=== PATIENT | male | born 1950 | race Caucasian/White ===

== ENCOUNTER → 2019-09-09 10:18 | Outpatient (BNVA) | payer MEDICARE, OTHER, SELFPAY | PROVIDERS: Family Provider Family Medicine; PCP Family Medicine; Visit Provider Specialist | DX: M79.642 Pain in left hand (principal) | CPT/HCPCS: 73130 ==

== ENCOUNTER → 2019-09-14 10:52 | Outpatient (BNVA) | payer MEDICARE, OTHER, SELFPAY | PROVIDERS: Family Provider Family Medicine; PCP Family Medicine; Visit Provider Family Medicine | DX: M25.661 Stiffness of right knee, not elsewhere classified (principal); M25.562 Pain in left knee; G89.29 Other chronic pain | CPT/HCPCS: 73562 ==

== ENCOUNTER 2019-09-15 06:29 | Day surgery (SDC) | payer MEDICARE, OTHER, SELFPAY ==
[2019-09-14 10:02] VITALS: BMI 17.9
--- NOTE | 2019-09-15 06:55 | P.HPUD_ITS ---
Surgery/Procedure H&P Update DATE OF PROCEDURE: September 15, 2019 DATE H&P PERFORMED: 09/09/19 H&P UPDATE INFORMATION: I have reviewed H&P completed within last 30 days, No changes to prior documentation and [place] is in [facility] [place] date indicated PREOP DIAGNOSIS: Triggering Left Thumb PLANNED PROCEDURE: Operation Date: 09/15/19 08:05 Proposed Procedures p Trigger Finger Release of left thumb 26307 M65.312(Left) - Michelle Queen MD Related Problem List Diagnoses (1) Trigger thumb of left hand:
[2019-09-15 07:06] VITALS: BP 147/98; PULSE 55; RESP 18; TEMP 36.1; O2SAT 94
[2019-09-15] MEDS: CELEcoxib 200 mg Capsule 400 MG PO (07:10)
[2019-09-15] MEDS: sodium chloride 0.9% 1,000 ML 30 ML IV (07:35)
--- NOTE | 2019-09-15 07:36 | ANES.PREANE2 ---
Pre-Anesthetic Assessment Pre-Anesthetic Assessment: Height/Weight: Height 1.73 m Weight 53.524 kg Temp Pulse Resp BP Pulse Ox 97.0 F L 55 L 18 147/98 94 09/15/19 07:06 09/15/19 07:06 09/15/19 07:06 09/15/19 07:06 09/15/19 07:06 Preop Diagnosis: Left trigger thumb Proposed Procedure: Operation Date: 09/15/19 08:05 Proposed Procedures p Trigger Finger Release of left thumb 45733 M65.312(Left) - Michelle Queen MD Familial anesthetic complications: None Was Beta Lenard taken within 24 hours: N/A Last intake: Intake Took verapamil and enalapril Last Liquid Date 09/14/19 Last Liquid Time 22:00 Last Solid Date 09/14/19 Last Solid Time 20:00 Social: Social History: No alcohol and No tobacco Comment: former smoker Exam: Pre-Anes Outpt Exam: alert, oriented x 3, clear to auscultation bilaterally and regular rate & rhythm Airway: Cervical ROM: WNL MP: 1 Dentition: Full Pulmonary: Pulmonary: None reported CV/HEM: CV/HEM: HTN : : None reported Hepatic: Hepatic: None reported GI: GI: GERD Metabolic: Metabolic: None reported Musc/skel: Musc/skel: OA/DJD Neuropsych: Neuropsych: CVA (seen on imaging (MRI) - 2014 (still has occassional dizziness)) Anesthetic Plan: ASA status: 2 Anesthesia: MAC Risk of > 500 ml blood loss (7ml/kg in children): No Meds/Allergies Current Medications: Current Medications Generic Name Dose Route Start Last Admin Trade Name Freq PRN Reason Stop Dose Admin Sodium Chloride 1,000 mls @ 30 ml s/hr 09/15/19 07:15 09/15/19 07:35 Sodium Chloride 0.9% IV 09/16/19 07:14 30 mls/hr .Q24H NAVEED Administration PFSH Anesthesia PFSH: Medical History (Updated 09/14/19 @ 10:49 by Demi Saenz MD) Essential hypertension GERD (gastroesophageal reflux disease) H/O: stroke History of CVA (cerebrovascular accident) Hyperlipidemia Osteoarthritis Surgical History (Updated 09/14/19 @ 10:44 by Demi Saenz MD) H/O adenoidectomy H/O arthroscopic knee surgery H/O hand surgery H/O hernia repair H/O sinus surgery S/P tonsillectomy Social History Smoking and tobacco status: former smoker Quit status (tobacco): has quit using tobacco Second hand smoke exposure: No Alcohol intake: current Alcohol intake frequency: holidays/special occasions only Desire information about alcohol rehabilitation?: No Desire information about substance/drug rehabilitation?: No Caregiver/support person: Yes Lives independently: No Household members: spouse Housing: House Marital status: Current occupational status: retired History of recent travel: No Data Anesthesia Cardiac Studies: No Data to Display
[2019-09-15 08:45] VITALS: BP 133/71; PULSE 55; RESP 18; TEMP 36.9; O2SAT 96
--- NOTE | 2019-09-15 08:46 | PM.OP ---
Operative Report Date of procedure: September 15, 2019 Pre-op Diagnosis: Left trigger thumb Post-op diagnosis: same Procedure Done: Release left trigger thumb Specimens removed/disposition: None Pathology: none sent Surgeon: Michelle Queen Geometry Professor: None Anesthesia: Other ([place] Block with MAC) Estimated blood loss (mL): 3 Tourniquet time (min): 31 IV fluids (mL): 250 Urine output (mL): 0 Complications: None Findings: Significant irritation to the flexor tendons of the thumb. Condition: stable Disposition: same day Brief History: This 69-year-old gentleman presented with complaints of triggering of the left thumb. After discussion of treatment options, the patient wished to proceed with surgical release. Risks and complications were presented to him and discussed at length. Consents were signed. Procedure: Patient was brought to the operating theater. He was placed on the operating room table. A Madeline block was administered without difficulty. Patient tolerated it well. 2 g of Ancef was administered prophylactically. A tourniquet was placed high on the arm and was elevated for the [place] block. This followed exsanguination of the arm. The Madeline block was administered per anesthesia. Tourniquet time was 31 minutes. Surgical pause was performed prior to commencement of the surgical procedure. At the time of the surgical pause we identified the site and side of surgery. We also identified the patient's identity and appropriate administration of IV antibiotics. Following the surgical pause, an incision was made along the metacarpophalangeal crease of the thumb. Dissection continued through the skin to the subcutaneous tissues using a scalpel. Blunt dissection was then utilized to spread soft tissues and allow access to the A1 alexandr. The A1 alexandr was identified. It was then incised longitudinally and sharply using a knife. This was accomplished without difficulty and atraumatically. Once the A1 alexandr was released, tendons were brought up out of the wound and evaluated. There were no gross masses on the tendons. Tendons were returned to normal position. We then irrigated the wound and subsequently closed it with 3-0 nylon with an interrupted mattress type suture. Following closure of the wound, the wound was injected with bupivacaine plain into the subcutaneous tissues as a local anesthetic. Sterile dressing was then placed consisting of of Telfa, Tegaderm, fluffed fluffs, sterile soft roll, and an Ambrocio wrap. The patient was returned to recovery in satisfactory condition. He will be discharged home to follow-up with me in the office. There were no complications and no specimens.
[2019-09-15 09:07] VITALS: BP 118/84; PULSE 52; RESP 18; O2SAT 96
== END 2019-09-15 09:25 | disposition home or self-care (01) ==
PROVIDERS: Family Provider Family Medicine; Visit Provider Specialist
PROC: (CPT 26055; principal; 2019-09-15 08:05)
DX: M65.312 Trigger thumb, left thumb (principal); I10 Essential (primary) hypertension; K21.9 Gastro-esophageal reflux disease without esophagitis; M19.90 Unspecified osteoarthritis, unspecified site; Z86.73 Personal history of transient ischemic attack (TIA), and cerebral infarction without residual deficits; E78.5 Hyperlipidemia, unspecified; Z87.891 Personal history of nicotine dependence
CPT/HCPCS: 26055; 12345; J0690; J2001; J2704; J3010; J3490; J7030

== ENCOUNTER → 2019-09-30 09:51 | Outpatient (BNVA) | payer MEDICARE, OTHER, SELFPAY | PROVIDERS: Family Provider Family Medicine; Visit Provider Specialist | DX: M25.561 Pain in right knee (principal); M25.562 Pain in left knee | CPT/HCPCS: 73560; 73565 ==

== ENCOUNTER → 2020-02-15 16:48 | Outpatient (BNVA) | payer MEDICARE, OTHER, SELFPAY | PROVIDERS: Family Provider Family Medicine; PCP Family Medicine; Visit Provider Family Medicine | DX: I10 Essential (primary) hypertension (principal); E78.5 Hyperlipidemia, unspecified; M77.9 Enthesopathy, unspecified; D22.9 Melanocytic nevi, unspecified; E78.2 Mixed hyperlipidemia; S99.919A Unspecified injury of unspecified ankle, initial encounter | CPT/HCPCS: 80048; 80061 ==

== ENCOUNTER → 2020-02-17 13:12 | Outpatient (BNVA) | payer MEDICARE, OTHER, SELFPAY | PROVIDERS: Family Provider Family Medicine; PCP Family Medicine; Visit Provider Family Medicine | DX: D22.9 Melanocytic nevi, unspecified (principal) | CPT/HCPCS: 88304 ==

== ENCOUNTER → 2020-04-12 09:58 | Outpatient (BNVA) | payer MEDICARE, OTHER, SELFPAY | PROVIDERS: Family Provider Family Medicine; PCP Family Medicine; Visit Provider Nurse Practitioner Family | DX: S82.61XA Displaced fracture of lateral malleolus of right fibula, initial encounter for closed fracture (principal); X58.XXXA Exposure to other specified factors, initial encounter | CPT/HCPCS: 73610 ==

== ENCOUNTER → 2020-04-27 11:21 | Outpatient (BNVA) | payer MEDICARE, OTHER, SELFPAY | PROVIDERS: Family Provider Family Medicine; PCP Family Medicine; Visit Provider Emergency Medicine | DX: S82.62XA Displaced fracture of lateral malleolus of left fibula, initial encounter for closed fracture (principal); M25.572 Pain in left ankle and joints of left foot; X58.XXXA Exposure to other specified factors, initial encounter | CPT/HCPCS: 73610 ==

== ENCOUNTER → 2020-08-11 11:58 | Outpatient (BNVA) | payer MEDICARE, OTHER, SELFPAY | PROVIDERS: Family Provider Family Medicine; PCP Family Medicine; Visit Provider Specialist | DX: M79.641 Pain in right hand (principal); M19.041 Primary osteoarthritis, right hand | CPT/HCPCS: 73130 ==

== ENCOUNTER → 2020-08-15 09:16 | Outpatient (BNVA) | payer MEDICARE, OTHER, SELFPAY | PROVIDERS: Family Provider Family Medicine; PCP Family Medicine; Visit Provider Specialist | DX: M79.643 Pain in unspecified hand (principal); Z20.828 Contact with and (suspected) exposure to other viral communicable diseases | CPT/HCPCS: 87635 ==

== ENCOUNTER 2020-08-19 07:01 | Day surgery (SDC) | payer MEDICARE, OTHER, SELFPAY ==
[2020-08-18 13:28] VITALS: BMI 33.4
--- NOTE | 2020-08-19 06:59 | P.HPUD_ITS ---
Surgery/Procedure H&P Update DATE OF PROCEDURE: August 19, 2020 DATE H&P PERFORMED: 08/11/20 H&P UPDATE INFORMATION: I have reviewed H&P completed within last 30 days, I have examined patient prior to procedure, No changes to prior documentation and H&P is in [facility] [place] EMR on date indicated PREOP DIAGNOSIS: Right trigger thumb PLANNED PROCEDURE: Operation Date: 08/19/20 08:15 Proposed Procedures p right trigger thumb release 49186 M65.30(Right) - Michelle Queen MD Related Problem List Diagnoses (1) Trigger thumb of right hand:
[2020-08-19 07:21] VITALS: BP 173/98; PULSE 62; RESP 18; TEMP 36.6; O2SAT 97
[2020-08-19] MEDS: sodium chloride 0.9% 1,000 ML 30 ML IV (07:40)
[2020-08-19] MEDS: CELEcoxib 200 mg Capsule 400 MG PO (07:41)
--- NOTE | 2020-08-19 08:20 | ANES.PREANE2 ---
Pre-Anesthetic Assessment Pre-Anesthetic Assessment: Height/Weight: Height 1.73 m Weight 99.79 kg Temp Pulse Resp BP Pulse Ox 97.8 F 62 18 173/98 97 08/19/20 07:21 08/19/20 07:21 08/19/20 07:21 08/19/20 07:21 08/19/20 07:21 Preop Diagnosis: Right trigger thumb Proposed Procedure: Operation Date: 08/19/20 08:15 Proposed Procedures p right trigger thumb release 02642 M65.30(Right) - Michelle Queen MD Was Beta Lenard taken within 24 hours: N/A Last intake: Intake Last Liquid Date 08/19/20 Last Liquid Time 07:00 Last Solid Date 08/18/20 Last Solid Time 18:00 Social: Social History: No alcohol and No tobacco Exam: Pre-Anes Outpt Exam: alert, oriented x 3, clear to auscultation bilaterally and regular rate & rhythm Airway: Submandibular: WNL Cervical ROM: WNL MP: 3 Dentition: Full CV/HEM: CV/HEM: HTN Metabolic: Metabolic: Morbid obesity Neuropsych: Neuropsych: CVA Anesthetic Plan: ASA status: 3 Anesthesia: MAC and Regional (specify below) (Madeline torres) Risk of > 500 ml blood loss (7ml/kg in children): No Meds/Allergies Current Medications: Current Medications Generic Name Dose Route Start Last Admin Trade Name Freq PRN Reason Stop Dose Admin Sodium Chloride 1,000 mls @ 30 ml s/hr 08/19/20 07:00 08/19/20 07:40 Sodium Chloride 0.9% IV 08/20/20 06:59 30 mls/hr .Q24H NAVEED Administration PFSH Anesthesia PFSH: Medical History Essential hypertension GERD (gastroesophageal reflux disease) H/O: stroke History of CVA (cerebrovascular accident) Hyperlipidemia Osteoarthritis Surgical History H/O adenoidectomy H/O arthroscopic knee surgery H/O hand surgery H/O hernia repair H/O sinus surgery S/P tonsillectomy Family History Denies family history of Anesthesia complication Social History Smoking and tobacco status: former smoker Quit status (tobacco): has quit using tobacco Second hand smoke exposure: No Alcohol intake: current Alcohol intake frequency: holidays/special occasions only Desire information about alcohol rehabilitation?: No Desire information about substance/drug rehabilitation?: No Caregiver/support person: Yes Lives independently: No Household members: spouse Housing: House Marital status: Current occupational status: retired History of recent travel: No Data Anesthesia Cardiac Studies: No Data to Display
[2020-08-19 09:10] VITALS: BP 157/88; PULSE 56; RESP 18; TEMP 36.1; O2SAT 95
--- NOTE | 2020-08-19 09:17 | P.OP_ITS ---
Operative Report Date of procedure: August 19, 2020 Pre-op Diagnosis: Right trigger thumb Post-op diagnosis: same Procedure Done: Right trigger thumb release Pathology: none sent Surgeon: Michelle Queen Instrument And Control Technician: None Anesthesia: MAC (With [place] block) Estimated blood loss (mL): 5 Tourniquet time (min): 28 Tourniquet time: At 250 mmHg IV fluids (mL): 600 Urine output (mL): 0 Urine output: No Morrell Complications: None Condition: stable Disposition: same day (Then home with family) Brief History: This 70-year-old gentleman presented to the office complaining of triggering of his right thumb. After discussion, he wished to have the trigger thumb release. This was scheduled for him. Questions were answered. In September of last year, he had a left trigger thumb release and has done well following this. Procedure: Patient was brought to the operating theater. He was placed on the operating room table. A [place] block was administered without difficulty. Patient tolerated it well. 2 g of Ancef was administered prophylactically. A tourniquet was placed high on the arm and was elevated for the [place] block. This followed exsa nguination of the arm. The Madeline block was administered per anesthesia. Tourniquet time was 28 minutes. Surgical pause was performed prior to commencement of the surgical procedure. At the time of the surgical pause we identified the site and side of surgery. We also identified the patient's identity and appropriate administration of IV antibiotics. Following the surgical pause, an incision was made along the metacarpophalangeal crease of the thumb. Dissection continued through the skin to the subcutaneous tissues using a scalpel. Blunt dissection was then utilized to spread soft tissues and allow access to the A1 alexandr. The A1 alexandr was identified. It was then incised longitudinally and sharply using a knife. This was accomplished without difficulty and atraumatically. Once the A1 alexandr was released, tendons were brought up out of the wound and evaluated. There were no gross masses on the tendons. Tendons were returned to normal position. We then irrigated the wound and subsequently closed it with 3-0 nylon with an interrupted mattress type suture. Following closure of the wound, the wound was injected with bupivacaine plain into the subcutaneous tissues as a local anesthetic. Sterile dressing was then placed consisting of of Telfa, Tegaderm, fluffed fluffs, sterile soft roll, and an Ambrocio wrap. The patient was returned to recovery in satisfactory condition. He will be discharged home to follow-up with me in the office. There were no complications and no specimens. Associated Problem List Diagnoses (1) Trigger thumb of right hand:
[2020-08-19 09:29] VITALS: BP 146/87; PULSE 54; RESP 18; O2SAT 93
--- NOTE | 2020-08-19 10:05 | ANE.PACU2 ---
Inpatient post-anesthesia follow up: Airway intact: Yes Vital signs: Temperature 97.0 F Pulse Rate 54 Respiratory Rate 18 Blood Pressure 146/87 Pulse Oximetry 93 Oxygen Delivery Me thod Room Air Oxygen Flow Rate Fraction of Inspir ed Oxygen Hydration adequate: Yes Nausea and vomiting: No Pain level: 1 Mental status: Baseline
== END 2020-08-19 09:45 | disposition home or self-care (01) ==
PROVIDERS: PCP Family Medicine; Visit Provider Specialist
PROC: (CPT 26055; principal; 2020-08-19 08:05)
DX: M65.311 Trigger thumb, right thumb (principal); I10 Essential (primary) hypertension; E66.01 Morbid (severe) obesity due to excess calories; Z68.33 Body mass index [BMI] 33.0-33.9, adult; Z86.73 Personal history of transient ischemic attack (TIA), and cerebral infarction without residual deficits; K21.9 Gastro-esophageal reflux disease without esophagitis; E78.5 Hyperlipidemia, unspecified; M19.90 Unspecified osteoarthritis, unspecified site; Z87.891 Personal history of nicotine dependence
CPT/HCPCS: 26055; 96365; J0131; J0690; J3010; J3490; J7030

== ENCOUNTER → 2020-09-12 09:58 | Outpatient (BNVA) | payer MEDICARE, OTHER, SELFPAY | PROVIDERS: PCP Family Medicine; Visit Provider Family Medicine | DX: I10 Essential (primary) hypertension (principal); Z68.34 Body mass index [BMI] 34.0-34.9, adult; L60.0 Ingrowing nail; L57.0 Actinic keratosis | CPT/HCPCS: 80048 ==

== ENCOUNTER → 2021-01-25 10:05 | Outpatient (BNVA) | payer MEDICARE, OTHER, SELFPAY | PROVIDERS: PCP Family Medicine; Visit Provider Specialist | DX: M65.30 Trigger finger, unspecified finger (principal) | CPT/HCPCS: 73130 ==

== ENCOUNTER → 2021-02-06 08:59 | Outpatient (BNVA) | payer MEDICARE, OTHER, SELFPAY | PROVIDERS: PCP Family Medicine; Referring Provider Specialist; Visit Provider Specialist | DX: M65.30 Trigger finger, unspecified finger (principal) | CPT/HCPCS: 87635 ==

== ENCOUNTER 2021-02-10 05:43 | Day surgery (SDC) | payer MEDICARE, OTHER, SELFPAY ==
[2021-02-09 09:15] VITALS: BMI 31.9
[2021-02-10 06:05] VITALS: BP 117/102; PULSE 60; RESP 18; TEMP 36.3; O2SAT 96
[2021-02-10] MEDS: acetaminophen 1,000 MG/100 ML PIGGYBACK 400 MG IV (06:15)
[2021-02-10] MEDS: CELEcoxib 200 mg Capsule 400 MG PO (06:15)
[2021-02-10] MEDS: sodium chloride 0.9% 1,000 ML 30 ML IV (06:25)
--- NOTE | 2021-02-10 06:41 | ANES.PREANE2 ---
Pre-Anesthetic Assessment Pre-Anesthetic Assessment: Height/Weight: Height 1.73 m Weight 95.254 kg Temp Pulse Resp BP Pulse Ox 97.3 F L 60 18 117/102 96 02/10/21 06:05 02/10/21 06:05 02/10/21 06:05 02/10/21 06:05 02/10/21 06:05 Preop Diagnosis: Right little finger trigger finger Proposed Procedure: Operation Date: 02/10/21 07:00 Proposed Procedures p RIGHT LITTLE FINGER TRIGGER FINGER RELEASE 51686 m65.30(Right) - Michelle Queen MD Familial anesthetic complications: None Was Beta Lenard taken within 24 hours: N/A Was Clonidine taken within 24 hours: N/A Last intake: Intake Last Liquid Date 02/09/21 Last Liquid Time 21:00 Last Solid Date 02/09/21 Last Solid Time 18:00 Social: Social History: No alcohol and No tobacco Exam: Pre-Anes Outpt Exam: alert, oriented x 3, clear to auscultation bilaterally and regular rate & rhythm Airway: Cervical ROM: WNL MP: 3 Dentition: [place] CV/HEM: Comments: no HTN, takes losartan as stroke prevention Neuropsych: Neuropsych: 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)) Anesthetic Plan: ASA status: 2 Anesthesia: MAC Risk of > 500 ml blood loss (7ml/kg in children): No Meds/Allergies Current Medications: Current Medications Generic Name Dose Route Start Last Admin Trade Name Freq PRN Reason Stop Dose Admin Sodium Chloride 1,000 mls @ 30 ml s/hr 02/10/21 06:00 02/10/21 06:25 Sodium Chloride 0.9% IV 02/11/21 05:59 30 mls/hr .Q24H NAVEED Administration PFSH Anesthesia PFSH: Medical History (Updated 01/28/21 @ 17:35 by Michelle Queen MD) Essential hypertension GERD (gastroesophageal reflux disease) H/O: stroke History of CVA (cerebrovascular accident) Hyperlipidemia Osteoarthritis Surgical History H/O adenoidectomy H/O arthroscopic knee surgery H/O hand surgery H/O hernia repair H/O sinus surgery S/P tonsillectomy Family History Denies family history of Anesthesia complication Social History Smoking and tobacco status: never smoked Quit status (tobacco): has quit using tobacco Second hand smoke exposure: No Alcohol intake: current Alcohol intake frequency: holidays/special occasions only Desire information about alcohol rehabilitation?: No Desire information about substance/drug rehabilitation?: No Caregiver/support person: Yes Lives independently: No Household members: spouse Housing: House Marital status: Current occupational status: retired History of recent travel: No Data Anesthesia Cardiac Studies: No Data to Display
--- NOTE | 2021-02-10 06:57 | W.PM.OPSUD ---
Surgery/Procedure H&P Update DATE OF PROCEDURE: February 10, 2021 DATE H&P PERFORMED: 01/25/21 H&P UPDATE INFORMATION: I have reviewed H&P completed within last 30 days, I have examined patient prior to procedure, No changes to prior documentation and [place] is [place] [facility] [place] on date indicated PREOP DIAGNOSIS: Right little finger trigger finger PLANNED PROCEDURE: Operation Date: 02/10/21 07:00 Proposed Procedures p RIGHT LITTLE FINGER TRIGGER FINGER RELEASE 12292 m65.30(Right) - Michelle Queen MD Related Problem List Diagnoses (1) Trigger finger, right little finger:
[2021-02-10 07:55] VITALS: BP 170/100; PULSE 53; RESP 14; TEMP 36.3; O2SAT 97
--- NOTE | 2021-02-10 07:55 | PM.OP ---
Operative Report Date of procedure: February 10, 2021 Pre-op Diagnosis: Right little finger trigger finger Post-op diagnosis: same Post-op Findings: Thickened and very tight A1 alexandr Procedure Done: Release right small finger trigger finger Implants: None Specimens removed/disposition: None Pathology: none sent Surgeon: Michelle Queen Anesthesia: MAC (With [place] block) Estimated blood loss (mL): 1 Tourniquet time (min): 37 Tourniquet time: At 250 mmHg IV fluids (mL): 400 Urine output (mL): 0 Urine output: No Morrell Complications: None Condition: stable Disposition: PACU (Then to same-day surgery for discharge to home) Brief History: This 70-year-old gentleman presented to the office complaining of triggering of his right small finger. After discussion, he wished to have the trigger finger release for the small finger. This was scheduled for him. Questions were answered. The patient has had successful bilateral trigger thumb releases on separate occasions. Procedure: Patient was brought to the operating theater. He was placed on the operating room table. A Madeline block was administered without difficulty. Patient tolerated it well. 2 g of Ancef was administered prophylactically. A tourniquet was placed high on the arm and was elevated for the [place] block. This followed exsanguination of the arm. The Madeline block was administered per anesthesia. Tourniquet time was 37 minutes. Surgical pause was performed prior to commencement of the surgical procedure. At the time of the surgical pause we identified the site and side of surgery. We also identified the patient's identity and appropriate administration of IV antibiotics, Ancef 2 g. Following the surgical pause, an incision was made along the metacarpophalangeal crease of the small finger. Dissection continued through the skin to the subcutaneous tissues using a scalpel. Blunt dissection was then utilized to spread soft tissues and allow access to the A1 alexandr. The A1 alexandr was identified. It was then incised longitudinally and sharply using a knife. This was accomplished without difficulty and atraumatically. Once the A1 alexandr was released, tendons were brought up out of the wound and evaluated. There were no gross masses on the tendons. Tendons were returned to normal position. We then irrigated the wound and subsequently closed it with 3-0 nylon with an interrupted mattress type suture. Following closure of the wound, the wound was injected with bupivacaine plain into the subcutaneous tissues as a local anesthetic. Sterile dressing was then placed consisting of of Dermabond, OpSite, fluffed fluffs, sterile soft roll, and an Ambrocio wrap. The patient was returned to recovery in satisfactory condition. He will be discharged home to follow-up with me in the office. There were no complications and no specimens. Associated Problem List Diagnoses (1) Trigger finger, right little finger:
[2021-02-10 08:00] VITALS: BP 174/101; PULSE 51; RESP 16; O2SAT 98
[2021-02-10 08:05] VITALS: BP 152/108; PULSE 53; RESP 15; TEMP 36.5; O2SAT 96
[2021-02-10 08:12] VITALS: BP 130/88; PULSE 50; RESP 18; TEMP 36.4; O2SAT 95
[2021-02-10 08:24] VITALS: PULSE 53; RESP 18; O2SAT 95
--- NOTE | 2021-02-10 14:50 | ANE.PACU2 ---
Inpatient post-anesthesia follow up: Airway intact: Yes Vital signs: Temperature 97.5 F Pulse Rate 53 Respiratory Rate 18 Blood Pressure 130/88 Pulse Oximetry 95 Oxygen Delivery Me thod Room Air Oxygen Flow Rate Fraction of Inspir ed Oxygen Hydration adequate: Yes Nausea and vomiting: No Pain level: 1 Mental status: Baseline
== END 2021-02-10 08:38 | disposition home or self-care (01) ==
PROVIDERS: PCP Family Medicine; Visit Provider Specialist
PROC: (CPT 26055; principal; 2021-02-10 07:00)
DX: M65.351 Trigger finger, right little finger (principal); I10 Essential (primary) hypertension; I69.898 Other sequelae of other cerebrovascular disease; K21.9 Gastro-esophageal reflux disease without esophagitis; E78.5 Hyperlipidemia, unspecified; M19.90 Unspecified osteoarthritis, unspecified site; Z79.82 Long term (current) use of aspirin
CPT/HCPCS: 26055; 96365; J0690; J2704; J3010; J3490; J7030

== ENCOUNTER → 2021-04-27 10:34 | Outpatient (BNVA) | payer MEDICARE, OTHER, SELFPAY | PROVIDERS: PCP Family Medicine; Visit Provider Family Medicine | DX: I10 Essential (primary) hypertension (principal); E78.2 Mixed hyperlipidemia; Z68.34 Body mass index [BMI] 34.0-34.9, adult | CPT/HCPCS: 80048; 80061 ==

== ENCOUNTER → 2023-02-14 07:44 | Outpatient (BNVA) | payer MEDICARE, OTHER, SELFPAY | PROVIDERS: Visit Provider Surgery | DX: Z12.11 Encounter for screening for malignant neoplasm of colon (principal) | CPT/HCPCS: 99024; 99203 ==

== ENCOUNTER 2023-03-15 06:42 | Day surgery (SDC) | payer MEDICARE, OTHER, SELFPAY ==
[2023-03-13 14:12] VITALS: BMI 31.9
--- NOTE | 2023-03-15 06:57 | W.PM.OPSUD ---
Surgery/Procedure H&P Update DATE OF PROCEDURE: March 15, 2023 DATE H&P PERFORMED: 02/14/23 H&P UPDATE INFORMATION: I have reviewed H&P completed within last 30 days, I have examined patient prior to procedure and No changes to prior documentation PLANNED PROCEDURE: Operation Date: 03/15/23 08:15 Proposed Procedures p Colonoscopy 56851,Z12.11(Not Applicable) - Jose Whyte, DO
[2023-03-15 07:24] VITALS: BP 165/92; PULSE 61; RESP 18; TEMP 35.9; O2SAT 98
[2023-03-15] MEDS: sodium chloride 0.9% 1,000 ML 30 ML IV (07:35)
--- NOTE | 2023-03-15 07:40 | P.ANESASSM_ITS ---
Pre-Anesthetic Assessment Height/Weight: Height 1.73 m Weight 95.254 kg Temp Pulse Resp BP Pulse Ox O2 Del Method 96.6 F L 61 18 165/92 98 Room Air 03/15/23 07:24 03/15/23 07:24 03/15/23 07:24 03/15/23 07:24 03/15/23 07:24 03/15/23 07:24 Preop Diagnosis: screening Operation Date: 03/15/23 08:15 Proposed Procedures p Colonoscopy 35961,Z12.11(Not Applicable) - Jose Whyte DO Familial anesthetic complications: none Was Beta Lenard taken within 24 hours: N/A Was Clonidine taken within 24 hours: N/A Last intake: Intake Last Liquid Date 03/14/23 Last Liquid Time 20:00 Last Solid Date 03/14/23 Last Solid Time 16:00 Social Alcohol (ocassional) and No tobacco Exam alert, oriented x 3, clear to auscultation bilaterally and regular rate & rhythm Airway Submandibular: within normal limits Cervical ROM: within normal limits Mallampati: Class I Pulmonary None reported CV/HEM Hypertension None reported Hepatic None reported GI Gastroesophageal Reflux Disease Metabolic None reported Musc/skel Osteoarthritis/DJD Neuropsych Transient Ischemic Attack Anesthetic Plan ASA status: 2 Anesthesia: MAC Risk of > 500 ml blood loss (7ml/kg in children): No Medications/Allergies Home Medications Medication Instructions Recorded Confirmed Last Taken Type aspirin 325 mg tablet 325 mg PO DAILY 09/09/19 03/13/23 03/10/23 History omega 9-jdo-qfp-fish oil 1,200 mg 1 cap PO DAILY 03/08/20 03/13/23 03/10/23 History (144 mg-216 mg) capsule (Fish Oil) verapamil 180 mg tablet,extended 180 mg PO Q12H 90 days #180 tabs 04/27/21 03/15/23 03/15/23 Rx release enalapril maleate 10 mg tablet 10 mg PO DAILY 02/14/23 03/13/23 03/13/23 History Allergies Allergy/AdvReac Type Severity Reaction Status Date / Time No Known Allergies Allergy Verified 03/13/23 14:06 Current Medications Generic Name Dose Route Start Last Admin Trade Name Freq PRN Reason Stop Dose Admin Sodium Chloride 1,000 mls @ 30 mls/hr 03/15/23 07:00 03/15/23 07:35 Sodium Chloride 0.9% IV 03/16/23 06:59 30 mls/hr .Q24H NAVEED Administration PFSH Anesthesia Medical History (Updated 02/14/23 @ 08:18 by Jose Whyte DO) Essential hypertension GERD (gastroesophageal reflux disease) H/O: stroke History of CVA (cerebrovascular accident) Hyperlipidemia Osteoarthritis Surgical History (Updated 02/14/23 @ 08:18 by Jose Whyte DO) H/O adenoidectomy H/O arthroscopic knee surgery H/O hand surgery H/O hernia repair H/O sinus surgery History of esophagogastroduodenoscopy (EGD) 2019 Hx of colonoscopy with polypectomy 2019 Hx of inguinal hernia repair 02/04/23 [facility] S/P tonsillectomy Family History Denies family history of Anesthesia complication Social History Smoking and tobacco status: never smoked Quit status (tobacco): has quit using tobacco Second hand smoke exposure: No Alcohol intake: current Alcohol intake frequency: holidays/special occasions only Desire information about alcohol rehabilitation?: No Substance/Drug Use: never Desire information about substance/drug rehabilitation?: No Caregiver/support person: Yes Lives independently: No Household members: spouse Housing: House Marital status: Current occupational status: retired Data Anesthesia Cardiac Studies: No Data to Display
[2023-03-15 09:04] VITALS: BP 160/85; PULSE 50; RESP 16; TEMP 36.1; O2SAT 96
[2023-03-15 09:17] VITALS: BP 111/72; PULSE 45; RESP 16; O2SAT 95
--- NOTE | 2023-03-15 09:45 | ANE.PACU2 ---
Inpatient post-anesthesia follow up: Airway intact: Yes Vital signs: Temperature 97 F Pulse Rate 45 Respiratory Rate 16 Blood Pressure 111/72 Pulse Oximetry 95 Oxygen Delivery Me thod Room Air Oxygen Flow Rate Fraction of Inspir ed Oxygen Hydration adequate: Yes Nausea and vomiting: No Pain level: 1 Mental status: Baseline
== END 2023-03-15 09:45 | disposition home or self-care (01) ==
PROVIDERS: Visit Provider Surgery
PROC: 0DJD8ZZ Inspection of Lower Intestinal Tract, Via Natural or Artificial Opening Endoscopic (ICD-10-PCS; CPT 45378; principal; 2023-03-15 08:15)
DX: Z12.11 Encounter for screening for malignant neoplasm of colon (principal); K57.30 Diverticulosis of large intestine without perforation or abscess without bleeding; K64.8 Other hemorrhoids; I10 Essential (primary) hypertension; K21.9 Gastro-esophageal reflux disease without esophagitis; M19.90 Unspecified osteoarthritis, unspecified site; Z86.73 Personal history of transient ischemic attack (TIA), and cerebral infarction without residual deficits; Z79.82 Long term (current) use of aspirin; E78.5 Hyperlipidemia, unspecified
CPT/HCPCS: G0121; J2704; J7030

== ENCOUNTER → 2024-01-13 15:46 | Outpatient (BNVA) | payer MEDICARE, OTHER, SELFPAY | PROVIDERS: Visit Provider Specialist | DX: M25.562 Pain in left knee (principal); G89.29 Other chronic pain; M25.661 Stiffness of right knee, not elsewhere classified; M17.0 Bilateral primary osteoarthritis of knee | CPT/HCPCS: 73560; 73565; 99213 ==

== ENCOUNTER → 2024-02-03 14:55 | Outpatient (BNVA) | payer MEDICARE, OTHER, SELFPAY | PROVIDERS: Visit Provider Specialist | DX: M18.0 Bilateral primary osteoarthritis of first carpometacarpal joints (principal) | CPT/HCPCS: 73110; 99214 ==

== ENCOUNTER 2024-02-19 07:50 | Outpatient (CLI) | payer MEDICARE, OTHER, SELFPAY ==
--- NOTE | 2024-02-19 08:00 | IR_ITS ---
WS: [id number] LEFT KNEE ARTHROGRAM (FLUOROSCOPY) LEFT knee arthrogram was performed in fluoroscopy prior to MRI evaluation. HISTORY: Chronic pain. COMPARISON: None. FLUOROSCOPY TIME: 1min [id number] # of spot films: 3 Procedure, risks and complications were explained to the patient. Complications include but not limit ed to bleeding, infection and contrast reaction. Current medications are reviewed. Skin is cleansed with ChloraPrep. Skin is anesthetized with 1% buffered lidocaine. 22-gauge needle is inserted into the LEFT suprapatellar joint. Approximately 40 cc of gadolinium mixture injected. The injected contrast is part intra-articular and extra-articular. Patient will proceed to MRI evaluation immediately. No complications were encountered. Patient is instructed to watch for post procedure infection or ble eding. Patient is also instructed to contact the radiology department with any concerns. IR/[place] [id number] IMPRESSION: Uncomplicated LEFT knee joint injection prior to MRI arthrogram.
--- NOTE | 2024-02-19 08:10 | MR_ITS ---
WS: [id number] MRI LEFT knee pre and post arthrogram. HISTORY: Chronic knee pain. Prior debridement surgery. COMPARISON: Radiographs 01/13/2024. Multisequence imaging is performed prior to articular injection. After articular injection postcontra st imaging obtained in 3 planes. Prearthrogram: ACL and PCL are intact. Intrasubstance degeneration and mucoid degeneration in the ACL . There is a partial tear of the proximal MCL. There is adjacent soft tissue edema and marrow edema a t the site of the tear. Posterior lateral corner structures are appropriate. Horizontal tear posterio r horn medial meniscus extends to the intra-articular surface. Intrasubstance degeneration in both th e anterior and posterior lateral menisci. Blunting and truncation free edge of the anterior posterior meniscus. There is an additional tear in the posterior third of the posterior horn extending to the intra-articular surface. Very small joint effusion. Moderate narrowing patellofemoral joint with mild diffuse chondromalacia. No marrow edema. Mild narrowing of the medial and lateral compartments with mild diffuse chondromalac ia. No fractures. Post arthrogram: Majority of the contrast injected is intra-articular. There is a small amount of ext ravasated contrast extra-articular due to the small joint space being injected. No meniscal tear iden tified in the medial knee. Reidentified signal abnormality in the lateral menisci. Focal tear involvi ng the free edge of the anterior horn. Signal abnormalities within the posterior meniscus do not cont ain contrast. Seen only on a single coronal image is a possible vertical tear near the free edge of t he posterior horn. More focal loss of patellar cartilage involving the medial patellar facet. There is moderate fraying of the cartilage in the medial and lateral compartments. No marrow edema. MR/MR knee LT wo/w con [id number] IMPRESSION: 1. Partial tear proximal MCL with adjacent soft tissue and marrow edema. 2. Free edge tear anterior horn lateral meniscus. 3. Seen only on one coronal image is a possible vertical tear involving the po sterior horn lateral meniscus. There is additional signal abnormality within th e posterior horn which does not distend with the injected contrast. 4. Moderate tricompartment joint space narrowing with chondromalacia. 5. Suspected horizontal tear in the posterior medial meniscus does not distend with the injected contrast. This is most likely intrasubstance degeneration an d not a tear.
[2024-02-19] MEDS: iohexol 240 mg/mL 50 mL Btl INTRATHECA (09:50)
== END 2024-02-19 07:51 | disposition home or self-care (01) ==
LOC: RAD 07:50
PROVIDERS: Visit Provider Specialist
DX: M23.242 Derangement of anterior horn of lateral meniscus due to old tear or injury, left knee (principal); M23.632 Other spontaneous disruption of medial collateral ligament of left knee; M17.12 Unilateral primary osteoarthritis, left knee; M94.262 Chondromalacia, left knee
CPT/HCPCS: 27369; 73723; 77002; Q9966

== ENCOUNTER 2024-02-24 06:00 | Outpatient (CLI) | payer MEDICARE, OTHER, SELFPAY | END 2024-02-24 23:59 | disposition home or self-care (01) | LOC: SPT 02-25 14:49 | PROVIDERS: Visit Provider Specialist | DX: Z46.89 Encounter for fitting and adjustment of other specified devices (principal); M25.562 Pain in left knee | CPT/HCPCS: 97760; L1812 ==